=== PATIENT | female | born 1980 | race Caucasian/White ===

== ENCOUNTER 2025-05-31 14:23 | Emergency (ER) | payer MEDICAID, OTHER ==
[~2025-05-31] VITALS: Ht 162.6 cm; Wt 95.3 kg
[2025-05-31 14:44] VITALS: TEMP 98.4
[2025-05-31 15:04] LABS: PLATELET COUNT (AUTO) 228 K/uL (150-450); RED BLOOD CELL COUNT(AUTO) 6.14 MIL/uL (4.0-5.2); RED CELL DISTRIBUTION WIDTH 16.6 % (11.5-15.0); WHITE BLOOD COUNT (AUTO) 8.4 K/uL (4.3-11.0)
[2025-05-31] MEDS ORDERED: LORAZEPAM 1 MG TABLET ONE (15:06)
[2025-05-31] MEDS: LORAZEPAM 1 MG TABLET PO ONE (15:06)
[2025-05-31 15:10] LABS: CALCIUM, SERUM 8.9 mg/dL (8.5-10.1); CREATININE 0.8 mg/dL (0.6-1.3); SODIUM SERUM 137 mmol/L (136-145); UREA NITROGEN, BLOOD 15 mg/dL (7-18)
[2025-05-31 15:23] LABS: ASPARTATE AMINOTRANSFERASE 12 U/L (15-37); NT-PRO BNP 82 pg/mL (0-125); TOTAL PROTEIN, SERUM 7.2 g/dL (6.4-8.2)
[2025-05-31] MEDS ORDERED: ONDANSETRON 4 MG TAB.RAPDIS ONE (16:17)
[2025-05-31 16:20] LABS: EOSINOPHILS % (MANUAL) 1 % (0-4); LYMPHOCYTES % (MANUAL) 19 % (16-48); MONOCYTES % (MANUAL) 6 % (0-11.0); NEUTROPHILS % (MANUAL) 74 (42-76); PLATELET ESTIMATE ADEQUATE
[2025-05-31] MEDS: ONDANSETRON 4 MG TAB.RAPDIS SL ONE (16:22)
[2025-05-31 16:23] VITALS: BP 119/80; O2SAT 99
== END 2025-05-31 16:23 | disposition home or self-care (01) ==
LOC: ER 14:34
DX: R07.9 Chest pain, unspecified (principal); F41.9 Anxiety disorder, unspecified; E03.9 Hypothyroidism, unspecified; R06.02 Shortness of breath
CPT/HCPCS: 99285; 71045; 93005; 85027; 80048; 80076; 85007; 36415; 84484; 83880; Q0162